=== PATIENT | female | born 1950 | race Caucasian/White ===

== ENCOUNTER → 2018-09-11 | Outpatient (CLI) | payer BC | LOC: RAD 10:02 | DX: R06.00 Dyspnea, unspecified (principal) ==

== ENCOUNTER → 2018-10-28 | Outpatient (CLI) | payer MEDICARE ==
[2018-10-28 08:24] LABS: HEMATOCRIT 35.7 % (37.0-47.0); HEMOGLOBIN 11.7 gm/dL (12.0-15.0); MCH 26.6 pg (26.0-34.0); MCHC 32.8 g/dL (28.0-37.0); RBC 4.41 mil/uL (4.20-5.00); RDW 14.5 % (10.5-14.5); WBC 5.7 thou/uL (4.0-11.0)
[2018-10-30 11:10] LABS: ANTI-DNA SCREEN 17 IU/mL (0-9); ANTI-RNP 0.2 AI (0.0-0.9)
== END ==
LOC: CAT 09-17 13:46
PROVIDERS: Pediatrics
DX: J84.9 Interstitial pulmonary disease, unspecified (principal); R91.8 Other nonspecific abnormal finding of lung field; I70.0 Atherosclerosis of aorta; D18.09 Hemangioma of other sites

== ENCOUNTER → 2019-05-21 | Outpatient (CLI) | payer MEDICARE | LOC: CAT 08:35 | DX: J44.9 Chronic obstructive pulmonary disease, unspecified (principal); J84.9 Interstitial pulmonary disease, unspecified; R91.1 Solitary pulmonary nodule; I73.9 Peripheral vascular disease, unspecified; K75.3 Granulomatous hepatitis, not elsewhere classified; M41.84 Other forms of scoliosis, thoracic region; M47.814 Spondylosis without myelopathy or radiculopathy, thoracic region; J98.4 Other disorders of lung ==